=== PATIENT | male | born 1960 | race Caucasian/White ===

== ENCOUNTER → 2022-12-18 08:45 | Outpatient (CLI) | payer BC, SELFPAY ==
--- NOTE | ~2022-12-18 | MR_ITS ---
EXAMINATION: MR cervical spine wo con DATE: 12/18/2022 09:32 INDICATION: Cervical radiculopathy and weakness TECHNIQUE: Magnetic resonance imaging (MRI) of the cervical spine was performed without intravenous c ontrast. Sequences included sagittal T2-weighted FSE, sagittal T2-weighted FS FSE, sagittal T1-weight ed FSE, axial MERGE and axial T2-weighted FSE. COMPARISON: None FINDINGS: 1-2 mm anterolisthesis C7 on T1. Bone alignment is otherwise normal. Solid C5-C6 anterior fusion with anterior plate and screw fixation with what appears be incorporated bone graft at the fused disc spa ce. Unfused vertebral body heights are normal. Bone marrow signal intensity is normal. Mild disc hei ght loss at C4-C5. Annular fissures at C3-C4, C4-C5 and C6-C7. Cord signal intensity is normal. The s oft tissues are unremarkable. The following disc levels are specifically discussed: C2-C3: The disc does not extend beyond the endplate margin. There is mild bilateral uncovertebral zahida nt osteoarthritis. There is moderate right and severe left facet joint osteoarthritis. There is mild left neural foraminal stenosis. There is no central canal stenosis. C3-C4: Disc is mildly bulging. There is moderate bilateral uncovertebral joint osteoarthritis. There is mild bilateral facet joint osteoarthritis. There is mild bilateral neural foraminal stenosis. Ther e is no central canal stenosis. C4-C5: Disc is mildly bulging. There is mild bilateral uncovertebral joint osteoarthritis. There is m ild left and moderate right facet joint osteoarthritis. There is mild bilateral, right greater than l eft neural foraminal stenosis. There is mild central canal stenosis. C5-C6: Disc space and facet joints are fused. Is also fusion across the right facet joint. There is m ild left facet osteoarthritis.. There is no neural foraminal stenosis. There is no central canal sten osis. C6-C7: Disc is bulging with superimposed annular fissure and small central disc extrusion with disc m aterial extending up to 2-3 mm cephalad and caudal to the level of the endplates. There is mild bilat eral uncovertebral joint osteoarthritis. There is mild to moderate bilateral facet joint osteoarthrit is. There is mild bilateral neural foraminal stenosis. There is mild central canal stenosis. C7-T1: The disc does not extend beyond the more posterior T1 superior endplate margin. There is mild bilateral uncovertebral joint osteoarthritis. There is moderate left and severe right facet joint ost eoarthritis. There is minimal right neural foraminal stenosis. There is no central canal stenosis. IMPRESSION: 1. Mild cervical spondylosis with instrumented C5-C6 anterior spinal fusion. Reviewed, dictated and finalized at location A.
--- NOTE | ~2022-12-18 | MR_ITS ---
EXAMINATION: MR lumbar spine wo con DATE: 12/18/2022 09:38 INDICATION: Low back pain and weakness TECHNIQUE: Magnetic resonance imaging (MRI) of the lumbar spine was performed without intravenous con trast. Sequences included sagittal T2-weighted FSE, sagittal T2-weighted FS FSE, sagittal T1-weighted FSE, and axial T2-weighted FSE. COMPARISON: None FINDINGS: 2 mm anterolisthesis L4 on L5. Alignment is otherwise normal. Mild likely physiologic anterior wedgin g with <20% anterior vertebral body height loss and normal marrow signal at T11 and T12. Lumbar verte bral body heights are normal. Bone marrow signal is normal throughout. Mild disc height loss at L4-L5 . Disc desiccation without significant disc height loss at L1-L2. The conus medullaris terminates at T12-L1. There is normal signal in the caudal spinal cord. Paravertebral soft tissues are unremarkable . The following disc levels are specifically discussed: T12-L1: Disc is minimally bulging. There is mild bilateral facet joint osteoarthritis. There is minim al right neural foraminal stenosis. There is no central canal stenosis. L1-L2: Disc is mildly bulging with superimposed annular fissure and right foraminal zone disc protrus ion. There is moderate bilateral facet joint osteoarthritis. There is left and mild to moderate right neural foraminal stenosis. There is mild central canal stenosis. L2-L3: Small bilateral foraminal zone disc protrusions. There is mild to moderate bilateral facet zahida nt osteoarthritis. There is mild bilateral neural foraminal stenosis. There is no central canal steno sis. L3-L4: Disc is mildly bulging with left foraminal zone annular fissure. There is moderate bilateral f acet joint osteoarthritis. There is mild to moderate bilateral neural foraminal stenosis. There is mi ld central canal stenosis. L4-L5: Disc is mildly bulging. There is severe bilateral facet joint osteoarthritis. There is moderat e right and mild to moderate left neural foraminal stenosis. There is mild central canal stenosis. L5-S1: Disc is minimally bulging with annular fissures at the bilateral subarticular zones. There is mild right and moderate left facet joint osteoarthritis. There is minimal bilateral neural foraminal stenosis. There is no central canal stenosis. IMPRESSION: 1. Mild lumbar spondylosis. Reviewed, dictated and finalized at location A. IMPRESSION: 1. Mild lumbar spondylosis.
== END ==
DX: M54.12 Radiculopathy, cervical region (principal); R53.1 Weakness; Z98.1 Arthrodesis status; M43.02 Spondylolysis, cervical region; M43.06 Spondylolysis, lumbar region
CPT/HCPCS: 72141; 72148

== ENCOUNTER 2024-04-01 14:47 | Emergency (ER) | payer BC, SELFPAY ==
--- NOTE | 2024-04-01 14:58 | ED.DENTAL ---
HPI - Dental/Oral General Chief complaint: Dental/Oral Stated complaint: Toothache Time Seen by Provider: 04/01/24 14:58 Source: patient, RN notes reviewed and old records reviewed Mode of arrival: ambulatory Limitations: no limitations History of Present Illness HPI Narrative: 63 year old male accompanied by family member presents to express care with complaints of dental pain for the past 3 weeks with increased pain today and reports noted upper lip swollen this morning but has improved. Patient reports that he needs all of his teeth removed has poor dentition. Patient reports pain to right upper front tooth and gum which is red, and to bottom front teeth with gums red and swollen, many missing and broken teeth noted,denies any known fevers. Patient is diabetic is to start on Ozempic this week also. MD Complaint: tooth pain Location: Tooth # (8, 24,25) Onset (ago): week(s) (3 with increased symptoms today) Severity scale (1-10): 8 Exacerbating factors: chewing Treatment prior to arrival: oral analgesic (Tylenol and Ibuprofen) Related Data Home Medications Medication Instructions Recorded Confirmed amitriptyline 50 mg tablet mg 04/01/24 budesonide-formoterol HFA 160 inhalation 04/01/24 mcg-4.5 mcg/actuation aerosol inhaler (Symbicort) famotidine 40 mg tablet mg 04/01/24 fluticasone 250 mcg-salmeterol 50 inhalation 04/01/24 mcg/dose blistr powdr for inhalation (Advair Diskus) fluticasone propionate 50 intranasal 04/01/24 mcg/actuation nasal spray,suspension glipizide 5 mg tablet, extended mg PO 04/01/24 release 24 hr ibuprofen 800 mg tablet mg 04/01/24 lisinopril 20 mg tablet mg 04/01/24 metformin 1,000 mg tablet mg 04/01/24 metoprolol succinate 50 mg mg PO 04/01/24 tablet,extended release 24 hr montelukast 10 mg tablet mg 04/01/24 omeprazole 20 mg capsule,delayed mg 04/01/24 release rosuvastatin 40 mg tablet mg 04/01/24 semaglutide 0.25 mg or 0.5 mg (2 mg subcut 04/01/24 mg/3 mL) subcutaneous pen injector (Ozempic) Allergies Allergy/AdvReac Type Severity Reaction Status Date / Time No Known Allergies Allergy Verified 04/01/24 14:58 Review of Systems Review of Systems: CONSTITUTIONAL: Denies fever, chills, or sweats. ENT: Denies rhinorrhea, congestion, sore throat, or otalgia. Reports dental pain #8, 24, and 25 with redness and swelling to gums around those teeth, missing, broken and noted caries on teeth,no acute facial swelling CARDIOVASCULAR: Denies chest pain, palpitations, or edema. RESPIRATORY: Denies cough or dyspnea. SKIN: Denies rash or itching. MUSCULOSKELETAL: Denies myalgia. NEUROLOGIC: Denies headache All systems reviewed & are unremarkable except as noted in HPI and below PMFSH Past Medical History Medical History (Updated 04/03/24 @ 09:18 by Sary Stover NP) Anxiety Asthma Diabetes Fusion of spine, cervical region GERD (gastroesophageal reflux disease) Hyperlipidemia Hypertension Surgical History Surgical History (Updated 04/03/24 @ 09:18 by Sary Stover NP) History of arthroscopy of left shoulder Social History Social History (Updated 04/03/24 @ 09:19 by Sary Stover NP) Smoking status: Never smoker Alcohol intake: current Alcohol use details: rare social Substance use type: does not use Living arrangements: with family Gender identity (if verbalized by the patient): Male Comments At time of signature, agree with nursing past medical, surgical, social and family history. There is no relevant family history pertinent to the presenting complaint Exam Narrative: GENERAL: Well-appearing, well-nourished, and in no acute distress. HEAD: Normocephalic, atraumatic. EYES: PERRLA and EOMI. ENT: Nares clear, no rhinorrhea or epistaxis. Mucous membranes moist. Missing teeth, broken teeth, caries, swollen red gums bottom lower front teeth and upper right front tooth with surrounding redness of gum, no
[2024-04-01 15:01] VITALS: BP 121/79; PULSE 94; RESP 18; TEMP 36.7; O2SAT 97
== END 2024-04-01 15:30 | disposition home or self-care (01) ==
PROVIDERS: Emergency Provider Registered Nurse; PCP Nurse Practitioner Family
DX: K02.9 Dental caries, unspecified (principal); K04.7 Periapical abscess without sinus; J45.909 Unspecified asthma, uncomplicated; E11.9 Type 2 diabetes mellitus without complications; K21.9 Gastro-esophageal reflux disease without esophagitis; E78.5 Hyperlipidemia, unspecified; I10 Essential (primary) hypertension
CPT/HCPCS: 99213; G0463